=== PATIENT | female | born 1960 | race Caucasian/White ===

== ENCOUNTER → 2017-12-20 | Outpatient (CLI) | payer OTHER | END | disposition home or self-care (01) | LOC: LAB SHORT 13:04 → PLD 13:04 | DX: C53.0 Malignant neoplasm of endocervix (principal) | CPT/HCPCS: 88305 ==

== ENCOUNTER 2018-01-06 06:53 | Day surgery (SDC) | payer OTHER ==
[~2018-01-06] VITALS: Ht 160 cm; Wt 120.7 kg
[~2018-01-06 06:53] MED LIST: HYDCHL25 PO; Hair, Skin & N1 EACH PO; METO100ER PO; TIMOLOL
== END 2018-01-06 09:03 | disposition home or self-care (01) ==
LOC: ORSCMMR 06:53 → ORD 08:00 → ORSCMMR 08:00
PROVIDERS: Internal Medicine Gastroenterology
PROC: 0DBN8ZX Excision of Sigmoid Colon, Via Natural or Artificial Opening Endoscopic, Diagnostic (ICD-10-PCS; principal; 2018-01-06 08:00)
DX: Z12.11 Encounter for screening for malignant neoplasm of colon (principal); K63.5 Polyp of colon; I10 Essential (primary) hypertension; E66.01 Morbid (severe) obesity due to excess calories; Z68.42 Body mass index [BMI] 45.0-49.9, adult; Z79.899 Other long term (current) drug therapy
CPT/HCPCS: 88305; J2250; J3010; J7120

== ENCOUNTER 2021-04-19 11:06 | Day surgery (SDC) | payer OTHER ==
[~2021-04-19] VITALS: Ht 160 cm; Wt 110.0 kg
[~2021-04-19 11:06] MED LIST changes: +DYAZIDE 37.5-21 EACH PO; +ELIQUIS5 M2 PO; +GLUCHON PO; +LOSA25 PO; +Vitamin D1000 UNI1 PO; +Voltaren100 GM TOP; +WARF5 PO; +WARF7.5 PO
--- NOTE | 2021-04-19 16:35 | NUR ---
04/19/21 1635 Julian Walker [facility] TIM[facility]
--- NOTE | 2021-04-19 17:01 | NUR ---
PATIENT CAME BACK FROM PACU TODAY 04/19/21 AT 1630. POD 0 LEFT TOTAL KNEE PATIENT IS ALERT AND ORIENTED X4. VS ARE WNL AND IS ON RA. PATIENT DENIES PAIN AT THIS TIME DUE TO HER HAVING A SPINAL DURING SURGERY. PATIENT HAS FULL SENSATION DOWN TO HER TOES. DENIES NUMBNESS OR TINGLING. SHE IS ABLE TO MOVE FINGERS AND TOES AND LIFT LEGS. LEFT KNEE HAS PACHECO WRAP AND AQUACEL THAT IS C/D/I. SHE IS TOLERATING SMALL AMOUNTS OF PO INTAKE. CALL LIGHT WITHIN REACH.
--- NOTE | 2021-04-19 18:05 | NUR ---
SHIFT SUMMARY: POD 0 LEFT TOTAL KNEE NO SIGNIFICANT CHANGES SINCE ARRIVING FROM PACU. PATIENT IS ALERT AND ORIENTED X4. VS ARE WNL AND IS ON RA. PATIENT DENIES PAIN BUT PATIENT RECIEVED TORADOL IV. PATIENT CAN MOVE FINGERS AND TOES WHEN ASKED AND CAN RAISE HER LEGS. LEFT KNEE HAS AQUACEL AND PACHECO WRAP THAT IS C/D/I. CALLS APPROPRIATELY. CALL LIGHT WITHIN REACH. PATIENT CAN TOLERATE PO INTAKE. THE PLAN IS TO WORK WITH PT/OT AND TO HAVE PAIN MANAGED WHEN SPINAL WEARS OFF.
[2021-04-20 04:47] LABS: BASOPHILS ABSOLUTE AUTO 0.01 K/mm3 (0.00-0.23); BASOPHILS PERCENT AUTO 0 % (0-2); EOSINOPHILS PERCENT AUTO 0 % (0-6); Hematocrit 38.3 % (33.0-51.0); Hemoglobin 12.6 g/dL (11.5-16.0); IMMATURE GRAN ABSOLUTE AUTO 0.04 K/mm3 (0.00-0.10); IMMATURE GRAN PERCENT AUTO 0 % (0-1); LYMPHOCYTES ABSOLUTE AUTO 0.62 K/mm3 (0.84-5.20); LYMPHOCYTES PERCENT AUTO 7 % (21-46); MONOCYTES ABSOLUTE AUTO 0.46 K/mm3 (0.16-1.47); MONOCYTES PERCENT AUTO 5 % (4-13); Mean Corpuscular HGB Conc 32.9 g/dL (31.5-36.5); Mean Corpuscular Volume 94 fL (80-100); Mean Platelet Volume 9.1 fL (9.1-12.4); NEUTROPHILS PERCENT AUTO 88 % (41-73); Platelet Count 218 K/mm3 (150-400); RDW Coefficient Variation 12.6 % (11.7-14.2); RDW Standard Deviation 43.8 fL (35.1-46.3); Red Blood Cell Count 4.06 M/mm3 (3.80-5.20); White Blood Cell Count 9.53 K/mm3 (4.00-11.30)
[2021-04-20 06:33] LABS: Bun/Creatinine Ratio 18.5 (12.0-20.0); Calcium, Blood 8.9 mg/dL (8.5-10.1); Creatinine, Blood 1.19 mg/dL (0.40-1.00); Magnesium, Blood 1.9 mg/dL (1.6-2.4); Potassium, Blood 4.4 mmol/L (3.5-5.5)
--- NOTE | 2021-04-20 08:18 | NUR ---
PT TOLERATING PO,VOIDING PAIN MINIMAL.ANXIOUS TO POSSIBLY GO HOME.
--- NOTE | 2021-04-20 11:40 | NUR ---
DISCHARGE PT PROVIDED WITH WRITTEN AND VERBAL DISCHARGE INSTRUCTIONS, SHE AND HER SISTER REPORTED UNDERSTANDING. PRIOR TO DISCHARGE PT CLEARED THERAPY, ABLE TO VOID, PAIN MANAGED, TOLERATING PO AND VSS. PT WAS PROVIDED WITH CLEAN DRESSINGS AND GIVEN INSTRUCTIONS ABOUT DRESSING CHANGES. DRESSINGS TO L KNEE C/D/I AT TIME OF DISCHARGE. PT WAS ESCORTED OUT IN W/C BY WHITLEY RAPHAEL.
== END 2021-04-20 11:35 | disposition home or self-care (01) ==
LOC: ORSCMMR 11:06 → SURS 16:22 → ORSCMMR 04-20 11:35
PROVIDERS: Orthopaedic Surgery
PROC: 8E0YXBZ Computer Assisted Procedure of Lower Extremity (ICD-10-PCS; principal; 2021-04-19 12:30)
PROC: 0SRD0J9 Replacement of Left Knee Joint with Synthetic Substitute, Cemented, Open Approach (ICD-10-PCS; principal; 2021-04-19 12:30)
DX: M17.12 Unilateral primary osteoarthritis, left knee (principal); I10 Essential (primary) hypertension; I48.91 Unspecified atrial fibrillation; E66.01 Morbid (severe) obesity due to excess calories; Z68.41 Body mass index [BMI] 40.0-44.9, adult; Z79.01 Long term (current) use of anticoagulants; Z79.899 Other long term (current) drug therapy
CPT/HCPCS: 36415; 73560-LT; 80048; 83735; 85025; 97116; 97161; A9270; C1713; C1776; J0171; J0690; J0735; J1100; J1885; J2250; J2370; J2405; J2704; J2795; J3010; J7120

== ENCOUNTER 2022-04-18 05:57 | Day surgery (SDC) | payer OTHER ==
[~2022-04-18] VITALS: Ht 160 cm; Wt 116.1 kg
--- NOTE | 2022-04-18 07:40 | NUR ---
Ambulatory in Day Surgery History, Chart, Medications and Allergies reviewed before start of procedure.Pre-Op teaching done. Pt verbalizes understanding.
--- NOTE | 2022-04-18 16:21 | NUR ---
SHIFT SUMMARY PT S/P R TOTAL KNEE. PT WORKED WELL PHYSICAL THERAPY AND PAIN CONTROLLED PER EMR. SOME NAUSEA NOTED POST SURGERY BUT IT HAS SINCE RESOLVED. VSS.
[2022-04-19 05:14] LABS: BASOPHILS ABSOLUTE AUTO 0.01 K/mm3 (0.00-0.23); BASOPHILS PERCENT AUTO 0 % (0-2); EOSINOPHILS ABSOLUTE AUTO 0.09 K/mm3 (0.00-0.68); EOSINOPHILS PERCENT AUTO 1 % (0-6); Hematocrit 37.1 % (33.0-51.0); Hemoglobin 12.6 g/dL (11.5-16.0); IMMATURE GRAN ABSOLUTE AUTO 0.02 K/mm3 (0.00-0.10); IMMATURE GRAN PERCENT AUTO 0 % (0-1); LYMPHOCYTES ABSOLUTE AUTO 0.71 K/mm3 (0.84-5.20); LYMPHOCYTES PERCENT AUTO 8 % (21-46); MONOCYTES PERCENT AUTO 8 % (4-13); Mean Corpuscular HGB 31.4 pg (26.0-34.0); Mean Corpuscular Volume 93 fL (80-100); Mean Platelet Volume 9.2 fL (9.1-12.4); NEUTROPHILS ABSOLUTE AUTO 7.29 K/mm3 (1.96-9.15); NEUTROPHILS PERCENT AUTO 83 % (41-73); Platelet Count 226 K/mm3 (150-400); RDW Standard Deviation 44.3 fL (35.1-46.3); Red Blood Cell Count 4.01 M/mm3 (3.80-5.20); White Blood Cell Count 8.82 K/mm3 (4.00-11.30)
--- NOTE | 2022-04-19 05:38 | NUR ---
SHIFT SUMMARY PT POD 0 RIGHT KNEE TKA, SHE HAS DONE WELL OVERNIGHT. PAIN MANANGED PER EMAR WITH EFFECT. PT HAD SOME MILD NAUSEA THIS AM WITHOUT VOMITTING. NAUSEA QUICKLY RELIVED ON ITS ON WITH ANTIEMETICS. PT HAS BEEN BEEN ABLE TO TOLERATE PO INTAKE AND REPORTS THAT SHE ATE ALL OF HER DINNER. DRESSING C/D/I TO RIGHT KNEE. SHE DENIES N/T AND IS ABLE TO WIGGLE TOES. POST OP VITALS ARE STABLE. PT HAS BEEN UP AND AMBULATING. PLAN IS FOR DISCHARGE TODAY.
[2022-04-19 05:44] LABS: Bun/Creatinine Ratio 22.5 (12.0-20.0); Calcium, Blood 8.6 mg/dL (8.5-10.1); Creatinine, Blood 1.29 mg/dL (0.40-1.00); Magnesium, Blood 1.9 mg/dL (1.6-2.4); Potassium, Blood 3.8 mmol/L (3.5-5.5)
--- NOTE | 2022-04-19 12:00 | NUR ---
DISCHARGE SUMMARY PT A&OX4, VSS/RA, SAM PO, VOIDING, AMB FWW & GB, PAIN MANAGED, IV DC'D. DC INS PROVIDED. PT REP UNDERSTANDING THOSE INSTRUCTIONS INC FU WITH SURGEON, DRESSING CHANGES, OK TO SHOWER, MEDICATIONS-PAIN MEDS/ELIQUIS/ABX, TEDS, AMB FWW AND ELEV/ICE AT REST. LEFT FLOOR VIA WC WITH SN TO GO HOME WITH SISTERS, WITH ALL PERSONAL POSSESSIONS INCLUDING DC PACKET & AQUACEL DRESSINGS.
== END 2022-04-19 12:30 | disposition home or self-care (01) ==
LOC: ORSCMMR 05:57 → ORD 07:30 → ORSCMMR 07:30 → SURS 10:46 → ORSCMMR 04-19 12:30
PROVIDERS: Orthopaedic Surgery
PROC: 0SRC0J9 Replacement of Right Knee Joint with Synthetic Substitute, Cemented, Open Approach (ICD-10-PCS; principal; 2022-04-18 07:30)
DX: M17.11 Unilateral primary osteoarthritis, right knee (principal); I10 Essential (primary) hypertension; I48.91 Unspecified atrial fibrillation; Z79.01 Long term (current) use of anticoagulants; E66.01 Morbid (severe) obesity due to excess calories; Z68.42 Body mass index [BMI] 45.0-49.9, adult; Z79.899 Other long term (current) drug therapy
CPT/HCPCS: 36415; 73560-RT; 80048; 83735; 85025; 97110; 97110-CQ; 97116; 97116-CQ; 97162; 97530-CQ; A9270; C1713; C1776; J0171; J0690; J0735; J1885; J2250; J2370; J2405; J2704; J2795; J3010; J3370; J7050; J7120